=== PATIENT | male | born 1985 | race Caucasian/White ===

== ENCOUNTER → 2021-01-22 | Outpatient (CLI) | payer BC | LOC: HEART 5 16:19 | DX: R00.2 Palpitations (principal) ==

== ENCOUNTER → 2021-03-19 | Outpatient (CLI) | payer BC | LOC: HEART 5 03-11 09:00 | DX: I44.1 Atrioventricular block, second degree (principal); R00.2 Palpitations; R00.0 Tachycardia, unspecified; I07.1 Rheumatic tricuspid insufficiency | CPT/HCPCS: 93306 ==